=== PATIENT | female | born 1995 | race Two or more races ===

== ENCOUNTER 2025-09-23 04:53 | Observation (INO) | payer MEDICAID ==
[~2025-09-23] VITALS: Ht 157.5 cm; Wt 67.1 kg
--- NOTE | 2025-09-23 11:40 | DVHDS2 ---
Physician Discharge Progress N Final Diagnosis: 30yo with IUP at 24w4d Operations or Procedures: Operations or Procedures SUBJECTIVE Bridget Manzano is a 30 yo with IUP at 24w4d presenting for decreased movement. Patient states that she went to do her glucola on 09/22 and baby was moving like normal, but in the evening when he is usually active, he was not as active as normal. Denies feeling UCs, denies leaking fluid, and denies vaginal bleeding. States she feels occasional round ligament pain and "lightning crotch". She also states she has had multiple yeast infections during the and has been prescribed PO diflucan twice. The second time she was given it (at her last appt on 09/02), she did not want to take it so she got monistat from the store and has been occasionally putting in on her labia and "not inside the vagina" PNC: routine care in [place]. last appt 09/02 EDC: 01/09/2026 Review of Systems: Neuro: No complaints Heart: No complaints Lungs: No complaints GI: No complaints : Has frequent episodes of itching and clumpy, thick discharge Skin: No complaints Extremities: No complaints OBJECTIVE VSS FHR: Baseline: 140 Variability: Moderate Decelerations: present (AGA) UCs: none noted Neuro: A&O x4. No apparent distress. Affect appropriate Heart: Regular rate and rhythm Lungs: Clear bilaterally GI: Gravid. No tenderness : Offered and declined at this time Skin: Dry and intact. No rashes or lesions Extremities: Cap refill WNL. ASSESSMENT 30 yo with IUP at 24w4d FHR in 140s Vaginal Yeast infection PLAN -PO hydrated patient. Patient states baby is moving like normal again. Encouraged adequate hydration during the for wellbeing -Discussed movement patterns, neurological status, and beginning kick counts at 28 weeks in . -Reviewed common discomforts of and nonpharmacologic ways to alleviate. Recommended patient get maternity band to help support the growing uterus and take pressure off back and ligaments -Reviewed ways to promote vaginal hygiene, including wearing cotton underwear, wiping front to back, changing out of clothes if they are damp, and using nonscented soaps. Discussed diflucan in and efficacy of using topical cream on labia. Encouraged patient to get monistat 7 day course and take full course, as directed on box. Patient's next appt is on 09/30/25. If yeast infection symptoms have not resolved with monistat 7 day course, she will follow-up with provider at that visit -Discussed labor precautions. Answered all patient questions and concerns. Patient verbalizes understanding. Condition on Discharge: Good Disposition: Home Discharge Instructions: Diet: Regular Activity: No Restrictions, As Tolerated Medications: Encouraged patient to continue taking vitamin and pick up driver OTC monistat 7 day course Follow Up Care: Specialist: Next appt 09/30 in [place] Discharge Statement: "Patient was advised to return to the ER or call 911 if any headaches, dizziness, shortness of breath, chest pain, abdominal pain, bleeding, fevers, or worsening of medical condition. Patient was counseled about treatment plan, medications, possible side effects, patientverbalized understanding. All questions were answered to the best of my ability. This discharge took greater then 30 minutes in planning, reviewing documentation, counseling the patient, and discussing with other team members." Visit Coding OBGYN Date of Service: Sep 23, 2025 Billing Provider: BLANE OSPINA CNM [employer] Common Visit Codes: [id number] INP/OBS CARE (HIGH) BLANE OSPINA CNM Sep 23, 2025 06:03
== END 2025-09-23 05:48 | disposition home or self-care (01) ==
LOC: LDRP 04:53
PROVIDERS: ADMIT Obstetrics & Gynecology; ATTEND Obstetrics & Gynecology
DX: O36.8120 Decreased fetal movements, second trimester, not applicable or unspecified (principal); Z3A.24 24 weeks gestation of pregnancy; Z98.890 Other specified postprocedural states; Z79.899 Other long term (current) drug therapy
CPT/HCPCS: 81002; 94760; G0378; 59025